=== PATIENT | female | born 1980 | race Caucasian/White ===

== ENCOUNTER 2016-09-20 11:16 | Inpatient (IN) | payer MEDICAID ==
[~2016-09-20] VITALS: Ht 154.9 cm; Wt 67.6 kg
--- NOTE | 2016-09-20 11:18 | NUR ---
PATIENT BIBA TO BED 5.
[2016-09-20] MEDS ORDERED: NACL 0.9% 1,000 ML IV SCH (11:21)
[2016-09-20 11:25] VITALS: BP 163/109
[2016-09-20] MEDS ORDERED: NACL 0.9% 1,000 ML IV ONE (11:25)
[2016-09-20] MEDS ORDERED: ONDANSETRON 4 MG/2 ML VIAL IVP ONE (11:25)
[2016-09-20] MEDS ORDERED: FAMOTIDINE 20 MG/2 ML VIAL IVP ONE (11:25)
--- NOTE | 2016-09-20 11:45 | NUR ---
PT STATES AFTER EATING AT [facility], WITH ABD CRAMPING SKIN IS PINK/WARM/DRY; AAOX4 WITH EVEN AND STEADY GAIT; LUNGS CLEAR BL; HR EVEN AND REGULAR; PT DENIES ANY FEVER, CP, SOB, OR COUGH AT THIS TIME; PATIENT STATES PAIN OF 10/10 AT THIS TIME; VSS; PATIENT POSITIONED FOR COMFORT; HOB ELEVATED; BEDRAILS UP X2; BED DOWN. ER MD MADE AWARE OF PT STATUS.
[2016-09-20 11:48] LABS: BASOPHILS # (AUTO) 0.1 K/uL (0.00-0.22); BASOPHILS % (AUTO) 1.9 % (0.0-2.0); EOSINOPHILS # (AUTO) 0.1 K/uL (0-0.4); EOSINOPHILS % (AUTO) 1.3 % (0.0-4.0); HEMOGLOBIN 14.3 g/dL (12.0-16.0); LYMPHOCYTES % (AUTO) 16.3 % (20.5-51.1); MEAN CORPUSCULAR HEMOGLOBIN 26 pg (27-31); MEAN CORPUSCULAR HGB CONC 33 g/dL (33-37); MEAN CORPUSCULAR VOLUME 81 fL (80-94); MONOCYTES # (AUTO) 0.3 K/uL (0.8-1.0); MONOCYTES % (AUTO) 4.7 % (1.7-9.3); NEUTROPHILS # (AUTO) 4.8 K/uL (1.8-7.7); NEUTROPHILS % (AUTO) 75.8 % (42.2-75.2); PLATELET COUNT (AUTO) 238 K/uL (140-450); RED BLOOD CELL COUNT(AUTO) 5.42 MIL/uL (4.20-5.40); RED CELL DISTRIBUTION WIDTH 15.6 % (11.6-13.7); WHITE BLOOD COUNT (AUTO) 6.3 K/uL (4.8-10.8)
[2016-09-20] MEDS ORDERED: ALBU0.0912 IH (11:56)
[2016-09-20 11:58] LABS: CALCIUM 9.2 mg/dL (8.5-10.1); CARBON DIOXIDE 26.1 mmol/L (21-32); CREATININE 0.9 mg/dL (0.6-1.3); POTASSIUM 3.1 mmol/L (3.5-5.1)
[2016-09-20 12:04] LABS: ALBUMIN 3.4 g/dL (3.4-5.0); TOTAL BILIRUBIN 0.3 mg/dL (0.0-1.0); TOTAL PROTEIN, SERUM 7.2 g/dL (6.4-8.2)
[2016-09-20 12:50] LABS: BILIRUBIN,URINE NEGATIVE (NEGATIVE); BLOOD, URINE 1+ (NEGATIVE); COLOR,URINE YELLOW (YELLOW); LEUKOCYTE ESTERASE ,URINE NEGATIVE (NEGATIVE); NITRITE, URINE NEGATIVE (NEGATIVE); PROTEIN,URINE NEGATIVE (NEGATIVE); UGLUCOSE NEGATIVE (NEGATIVE); UROBILINOGEN,URINE 0.2 EU/dL (0.2 - 1)
[2016-09-20 12:57] LABS: AMPHETAMINE, URINE POS. ng/ml (NEG <=1000); BARBITURATE, URINE NEG. ng/ml (NEG <=200); BENZODIAZEPINE, URINE NEG. ng/mL (NEG <=200); CANNABINOID, URINE NEG. ng/mL (NEG <=50); COCAINE, URINE NEG. ng/mL (NEG <=300); OPIATE, URINE NEG. ng/mL (NEG <=2000); PHENCYCLIDINE SCREEN,URINE NEG. ng/mL (NEG <=25)
--- NOTE | 2016-09-20 13:00 | NUR ---
PT RESTING IN BED, NO S/S OF RESPIRATORY DISTRESS NOTED.
[2016-09-20 13:35] LABS: APPEARANCE,URINE SLIGHTLY HAZY (CLEAR)
[2016-09-20 13:39] LABS: RBC,URINE 3-10 (FEW) /HPF (0-5); WBC,URINE 0-5 (RARE) /HPF (0-5)
[2016-09-20 13:40] LABS: BACTERIA,URINE 2+ /HPF (None Seen); MUCUS,URINE 1+ /LPF (None Seen); SQUAMOUS EPITHELIAL CELL,UR 4-10 (MOD) /LPF (0-3 (FEW))
[2016-09-20] MEDS ORDERED: ONDANSETRON 4 MG/2 ML VIAL IVP PRN (14:30)
[2016-09-20] MEDS ORDERED: LORazepam 2 MG/ML VIAL IVP PRN (14:30)
[2016-09-20] MEDS ORDERED: ALBUTEROL HFA MDI 90 MCG/ACTUATION 8 GM INH PRN (14:30)
--- NOTE | 2016-09-20 14:55 | NUR ---
NO BED AVAILABLE AT THIS TIME, WAITING FOR ROOM. CHARGE NURSE AWARE.
[2016-09-20] MEDS: DEXT 5% /NACL 0.9% 1,000 ML IV SCH (15:00)
[2016-09-20] MEDS ORDERED: PROBIOTIC SCREEN 1 EA MISC MC PRN (16:15)
[2016-09-20] MEDS ORDERED: cloNIDine 0.1 MG TAB PO PRN (16:15)
[2016-09-20] MEDS: ACETAMINOPHEN 325 MG TAB PO PRN (16:54)
--- NOTE | 2016-09-20 16:54 | NUR ---
PT COMPLAINS PAIN AT THIS TIME. TYLENOL GIVE ORDERED.
--- NOTE | 2016-09-20 17:00 | NUR ---
PT AWAKE, ALERT, AND ORIENTED , NO S/S OF RESPIRATORY DISTRESS NOTED. ON ROOM AIR. REPORT GIVEN, PT WILL BE TRANSFERRED TO [facility] [address].
[2016-09-20 17:20] VITALS: BP 107/68
--- NOTE | 2016-09-20 17:30 | NUR ---
ADMITTED A 36 Y/O FEMALE FROM ED, AAOX4 ACCOMPANIED BY 2 STAFF. PT ADMITTED TO [facility] FOR KIDNEY STONES AND HYDRONEPHROSIS. PT STATES SHE HAD N/V/D TODAY WITH ABDOMINAL PAIN. PT DENIES ANY PAIN AT THIS TIME. IV ACCESS TO LRT HAND 22G, INFUSING D5NS @ 100ML/HR. SKIN INTACT. DISCUSSED PLAN OF CARE. PT VERBALIZED UNDERSTANDING BUT REQUIRES REINFORCEMENT. PT QUICK TO ANGER AND HAS LABILE MOOD. PT DENIES TAKING METH. HOWEVER, UDS SHOWS + FOR METH. BELONGINGS CHECKED. NO VALUABLES. METERED DOSE INHALER KEPT IN THE BIN FOR PHARMACY. ALL NEEDS MET AND ANTICIPATED. ORIENTED TO CALL LIGHT, TV, PHONE, BATHROOM AND VISITING HRS. WILL CONTINUE TO MONITOR. CALL LIGHT PLACED WITHIN EASY REACH.
--- NOTE | 2016-09-20 18:00 | NUR ---
SPOKE WITH DR. BIRCH RE: K LEVEL 3.1L. GAVE ORDER TO GIVE KDUR 40MEQ POX1 NOW. WILL CARRY OUT ORDER.
[2016-09-20] MEDS ORDERED: POTASSIUM CHLORIDE 10 MEQ TABER PO SCH (18:25)
--- NOTE | 2016-09-20 18:33 | NUR ---
PT SLEEPING AT THIS TIME WITH REGULAR AND UNLABORED BREATHING. WILL CONTINUE TO MONITOR.
--- NOTE | 2016-09-20 19:29 | NUR ---
PT STILL SLEEPING AT THIS TIME. NO S/S OF RESPIRATORY DISTRESS. ENDORSED TO NEXT SHIFT FOR CONTINUITY OF CARE. PT IN STABLE CONDITION.
--- NOTE | 2016-09-20 19:30 | NUR ---
PATIENT IS CURRENTLY SLEEPING IN BED EASILY AROUSABLE ,IVF INFUSING WELL IV SITE PATENT.NO PAIN OR DISCOMFORT NOTED WILL CONTINUE TO MONITOR.CALL LIGHT WITHIN REACH.
[2016-09-20 20:00] VITALS: BP 148/71
[2016-09-20] MEDS: MORPHINE SULFATE 2 MG/ML SYR IVP PRN (20:48)
[2016-09-20] MEDS: ALBUTEROL 0.083% 2.5 MG/3 ML NEBU INH PRN (21:11)
--- NOTE | 2016-09-20 21:33 | NUR ---
PATIENT WAS ASKING FOR A SANDWICH AND A SODA AND IT WAS GIVEN TO THE PATIENT AND SHE ATE THE SANDWICH AND TOLERATED IT WELL.NEEDS MET WILL CONTINUE TO MONITOR.CALL LIGHT WITHIN REACH.
--- NOTE | 2016-09-20 22:00 | NUR ---
PATIENT ASKING FOR ANOTHER SANDWICH IT WAS GIVEN TO THE PATIENT.PATIENT REMAINS CALM AND COOPERATIVE.
[2016-09-20] MEDS: IBUPROFEN 600 MG TAB PO PRN (23:08)
[2016-09-21] VITALS: BP 145/89
--- NOTE | 2016-09-21 00:06 | NUR ---
PATIENT IS CURRENTLY RESTING IN BED SLEEPING ON AND OFF,IVF CONTINUES TO INFUSE WELL,IV SITE PATENT.CALL LIGHT WITHIN REACH.
[2016-09-21] MEDS: DEXT 5% /NACL 0.9% 1,000 ML IV SCH ×3 (00:30→18:14)
--- NOTE | 2016-09-21 02:23 | NUR ---
PATIENT SLEEPING COMFORTABLY IN BED IVF INFUSING WELL IV SITE PATENT WILL CONTINUE TO MONITOR.CALL LIGHT WITHIN REACH.
--- NOTE | 2016-09-21 02:39 | NUR ---
PATIENT COMPLAINS OF GENERALIZED SEVERE PAIN 11/24 AND RN DAYA WAS INFORMED HE WILL MEDICATE THE PATIENT FOR PAIN INDICATED.WILL CONTINUE TO MONITOR.PATIENT REQUESTED FOR JELLO AND IT WAS GIVEN TO THE PATIENT.CALL LIGHT WITHIN REACH.
[2016-09-21] MEDS: MORPHINE SULFATE 2 MG/ML SYR IVP PRN ×5 (02:48→23:01)
--- NOTE | 2016-09-21 04:10 | NUR ---
PATIENT STABLE SLEEPING IV INFUSING WELL.CALL LIGHT WITHIN REACH.
--- NOTE | 2016-09-21 06:21 | NUR ---
PATIENT STABLE RESTING IN BED.CALL LIGHT WITHIN REACH.
[2016-09-21 06:27] LABS: HEMATOCRIT 37.3 % (36-48); HEMOGLOBIN 12.3 g/dL (12.0-16.0); MEAN CORPUSCULAR HEMOGLOBIN 27 pg (27-31); MEAN CORPUSCULAR HGB CONC 33 g/dL (33-37); MEAN CORPUSCULAR VOLUME 82 fL (80-94); PLATELET COUNT (AUTO) 174 K/uL (140-450); RED BLOOD CELL COUNT(AUTO) 4.54 MIL/uL (4.20-5.40); RED CELL DISTRIBUTION WIDTH 15.9 % (11.6-13.7); WHITE BLOOD COUNT (AUTO) 5.1 K/uL (4.8-10.8)
[2016-09-21 06:43] LABS: ANION GAP 10.1 (8-16); CALCIUM 8.5 mg/dL (8.5-10.1); CARBON DIOXIDE 24.6 mmol/L (21-32); CREATININE 0.7 mg/dL (0.6-1.3); POTASSIUM 3.7 mmol/L (3.5-5.1)
--- NOTE | 2016-09-21 07:15 | NUR ---
PATIENT STABLE REPORT ENDORSED TO DARNELL NIXON AT BEDSIDE.
--- NOTE | 2016-09-21 07:15 | NUR ---
ASSUMED CONTINUITY OF CARE. NO SIGNS AND SYMPTOMS OF ACUTE DISTRESS NOTED. INITIAL ASSESSMENT DONE. EXPLAINED DIAGNOSIS, PLAN OF CARE, PAIN MANAGEMENT TEACHING, STRAIN URINE, USE OF CALL LIGHT/BED/TV/BATHROOM. VERBALIZED UNDERSTANDING. CALL LIGHT WITHIN REACH.
[2016-09-21 07:35] LABS: BAND % (MANUAL) 9 % (0-8); EOSINOPHILS % (MANUAL) 6 % (0-4); LYMPHOCYTES % (MANUAL) 37 % (20-46); MONOCYTES % (MANUAL) 6 % (5-12); NEUTROPHILS % (MANUAL) 42 (43-65)
[2016-09-21 08:00] VITALS: BP 138/94
--- NOTE | 2016-09-21 08:00 | NUR ---
Patient's Plan of Care was discussed and reviewed with [employer] TEAM LEAD: BIPIN NIXON
[2016-09-21] MEDS: TAMSULOSIN 0.4 MG CAP PO SCH (08:55)
--- NOTE | 2016-09-21 09:32 | NUR ---
PATIENT HAS BEEN SCREENED AND CATEGORIZED MODERATE NUTRITION RISK. PATIENT WILL BE SEEN WITHIN 3-5 DAYS OF ADMISSION. 09/23/16-09/25/[address]
--- NOTE | 2016-09-21 10:40 | NUR ---
WENT TO BATHROOM WITHOUT ASSISTANCE. TOLERATED WELL. NON-COMPLIANT WITH STRAIN URINE COLLECTION.
[2016-09-21 12:00] VITALS: BP 148/94
--- NOTE | 2016-09-21 12:07 | NUR ---
CM NOTE SPOKE WITH [facility] [phone] WHO SAID REVIEWS SHOULD ONLY BE SENT TO [facility]. FAXED INITIAL REVIEW TO [facility] [phone] PH [phone]
--- NOTE | 2016-09-21 17:09 | NUR ---
STILL NON-COMPLIANT WITH STRAIN COLLECTION. ALWAYS EXPLAINED AND REMINDED PT. ABOUT STRAIN URINE FOR CALCULUS MONITORING. WILL MONITOR.
--- NOTE | 2016-09-21 19:25 | NUR ---
BEDSIDE REPORT GIVEN TO TARYN CASTELLANOS. IVF INFUSING WELL. IN STABLE CONDITION.
[2016-09-21 20:00] VITALS: BP 142/79
--- NOTE | 2016-09-21 20:00 | NUR ---
RECEIVED AWAKE, ALERT,ORIENTED. AFEBRILE, NOT IN ACUTE DISTRESS. VERBALIZED PAIN ON THE RLQ OF THE ABDOMEN. MORPHINE NOT DUE AT THIS TIME. WITH AV FLUID D5NS INFUSING AT 100 ML/HR VIA RIGHT HABD #22 IV LINE. SAO2=99% ON ROOM AIR. VS STABLE, WILL CONTINUE TO MONITOR. NEEDS ATTENDED.
[2016-09-21] MEDS: IBUPROFEN 600 MG TAB PO PRN (21:38)
[2016-09-21] MEDS: ACETAMINOPHEN 325 MG TAB PO PRN (21:43)
--- NOTE | 2016-09-21 21:43 | NUR ---
TYLENOL 650 MG PO GIVEN FOR PAIN.
--- NOTE | 2016-09-21 23:01 | NUR ---
COMPLAINED OF NON-RELIEF OF PAIN. MORPHINE 2 MG IVP GIVEN.
[2016-09-22] VITALS: BP 151/84
--- NOTE | 2016-09-22 | NUR ---
ASLEEP,NOT IN ANY KIND OF DISTRESS. NO PAIN OR DISCOMFORT NOTED AT THIS TIME. SIDE RAILS UP, CALL LIGHT WITHIN REACH. KEPT WARM AND COMFORTABLE VS STABLE, WILL CONTINUE TO MONITOR.
--- NOTE | 2016-09-22 04:00 | NUR ---
ASLEEP, NOT IN ANY KIND OF DISTRESS. NO SIGNIFICANT CHANGE IN CONDITION. WILL CONTINUE TO MONITOR.
[2016-09-22] MEDS: MORPHINE SULFATE 2 MG/ML SYR IVP PRN ×3 (05:09→12:42)
--- NOTE | 2016-09-22 05:09 | NUR ---
COMPLAINED OF ABDOMINAL PAIN. MORPHINE 2 MG IVP GIVEN ORDERED.
[2016-09-22] MEDS: DEXT 5% /NACL 0.9% 1,000 ML IV SCH (05:17)
--- NOTE | 2016-09-22 05:40 | NUR ---
ASLEEP, NO PAIN OR DISCOMFORT NOTED AT THIS TIME.
[2016-09-22] MEDS: ACETAMINOPHEN 325 MG TAB PO PRN (06:57)
--- NOTE | 2016-09-22 06:57 | NUR ---
COMPLAINED OF NON-RELIEF OF PAIN. MORPHINE NOT DUE. TYLENOL 650 MG PO GIVEN PER PT'S REQUEST.
--- NOTE | 2016-09-22 07:15 | NUR ---
ENDORSED CARE TO FRANKIE HAMEED.
--- NOTE | 2016-09-22 07:16 | NUR ---
RECEIVED PT FROM SUPERVISOR PUMPING STATION NURSE AT BEDSIDE. PT IS A&OX4. PT HAS IV ON R HAND 22 G RUNNING D5NS@100. PT C/O PAIN WILL MEDICATE WHEN PAIN MED IS DUE. PT STATED SHE HAS BEEN STRAINING URINE BUT NO STONES. CALL LIGHT WITHIN REACH. WILL CONTINUE TO MONITOR.
[2016-09-22 07:23] LABS: HEMATOCRIT 37.5 % (36-48); HEMOGLOBIN 12.3 g/dL (12.0-16.0); MEAN CORPUSCULAR HEMOGLOBIN 27 pg (27-31); MEAN CORPUSCULAR HGB CONC 33 g/dL (33-37); MEAN CORPUSCULAR VOLUME 82 fL (80-94); PLATELET COUNT (AUTO) 179 K/uL (140-450); RED BLOOD CELL COUNT(AUTO) 4.58 MIL/uL (4.20-5.40); RED CELL DISTRIBUTION WIDTH 15.6 % (11.6-13.7)
[2016-09-22 07:48] LABS: ANION GAP 11.9 (8-16); CALCIUM 8.5 mg/dL (8.5-10.1); CARBON DIOXIDE 24.7 mmol/L (21-32); CREATININE 0.7 mg/dL (0.6-1.3); POTASSIUM 3.6 mmol/L (3.5-5.1)
[2016-09-22 08:00] VITALS: BP 136/100
[2016-09-22 08:07] LABS: EOSINOPHILS % (MANUAL) 6 % (0-4); LYMPHOCYTES % (MANUAL) 53 % (20-46); MONOCYTES % (MANUAL) 5 % (5-12); NEUTROPHILS % (MANUAL) 36 (43-65)
--- NOTE | 2016-09-22 08:55 | NUR ---
ENDORSED CARE OF PT TO DARNELL CALLEJAS AT BEDSIDE. PT IN STABLE CONDITION. WILL PROVIDE IV PAIN MED FOR PT.
[2016-09-22] MEDS: TAMSULOSIN 0.4 MG CAP PO SCH (09:04)
--- NOTE | 2016-09-22 11:17 | NUR ---
CM NOTE FAXED CONCURRENT REVIEW TO [facility] [phone]
--- NOTE | 2016-09-22 12:42 | NUR ---
NOTIFIED BY BRITTA PATRICK THAT PT IS SCREAMING IN PAIN. MEDICATED PT.
[2016-09-22] MEDS: ALBUTEROL 0.083% 2.5 MG/3 ML NEBU INH PRN (12:58)
[2016-09-22] MEDS: IBUPROFEN 600 MG TAB PO PRN (12:58)
[2016-09-22 13:00] VITALS: BP 148/91
[2016-09-22] MEDS ORDERED: CHLORHEXADINE GLUC 2% CLOTH TP SCH (13:00)
[2016-09-22] MEDS ORDERED: MUPIROCIN 2% OINT 22 GM TUBE TP SCH (13:00)
--- NOTE | 2016-09-22 14:50 | NUR ---
PT IS IN ISOLATION ROOM. PT INFORMED APPAREL CUTTER THAT SHE DOES NOT WANT TO BE HERE ANYMORE SHE WANT TO LEAVE. INFORMED PT THAT IT IS MEDICALLY NECESSARY FOR HER TO BE HER. PT SAID THAT SHE DID NOT CARE SHE JUST WANTS TO GO. ADVISED PT THAT IT IS AGAINST MEDICAL ADVICE FOR HER TO LEAVE. PT SAID IM LEAVING GAVE PT AMA PAPERS, PAGE MD
--- NOTE | 2016-09-22 14:55 | NUR ---
CALLED AWARE THAT PATIENT LEFT AMA
== END 2016-09-22 14:55 | disposition left against medical advice (07) | DRG 249 ==
LOC: MED 11:16 → MIC 14:39 → MTU 16:42
PROVIDERS: ADMIT Preventive Medicine Preventive Medicine/Occupational Environmental Medicine; ATTEND Preventive Medicine Preventive Medicine/Occupational Environmental Medicine
DX: K52.9 Noninfective gastroenteritis and colitis, unspecified (principal); N13.2 Hydronephrosis with renal and ureteral calculous obstruction; I10 Essential (primary) hypertension; F15.10 Other stimulant abuse, uncomplicated; R73.9 Hyperglycemia, unspecified; E87.6 Hypokalemia; Z53.21 Procedure and treatment not carried out due to patient leaving prior to being seen by health care provider; J45.909 Unspecified asthma, uncomplicated; Z87.442 Personal history of urinary calculi; Z88.6 Allergy status to analgesic agent; Z88.1 Allergy status to other antibiotic agents; Z88.8 Allergy status to other drugs, medicaments and biological substances; Z59.0 Homelessness
CPT/HCPCS: 36415; 74000; 80048; 80053; 80305; 81001; 82150; 83690; 84703; 85025; 87040; 87081; 87086; 94640; 96361; 96374; 96375; 99285; J2270; J2405; J3490; J7042; J7613

== ENCOUNTER 2018-08-28 05:54 | Emergency (ER) | payer MEDICAID ==
[~2018-08-28] VITALS: Ht 157.5 cm; Wt 68.0 kg
[~2018-08-28 05:54] MED LIST: ALBU0.0912 IH
[2018-08-28 05:55] VITALS: BP 177/134
--- NOTE | 2018-08-28 05:55 | NUR ---
PT BIBA BLS. TAKEN TO BED 9
[2018-08-28] MEDS ORDERED: ONDANSETRON 4 MG/2 ML VIAL IVP ONE (06:05)
[2018-08-28] MEDS ORDERED: NACL 0.9% 1,000 ML IV ONE (06:05)
--- NOTE | 2018-08-28 06:20 | NUR ---
38 YO F FERNIE FROM [facility] FOR NVD, WEBB, ABD PAIN X 3 DAYS. PT REPORTS EMESIS X 3 AND DIARRHEA X 2 IN PAST 24 HOURS. PT REPORTS 7/10 HEADACHE AND UPPER MIDDLE ABD PAIN. PT HAS HX OF HTN AND DOES NOT KNOW WHAT MEDICATION SHE TAKES. PT IS HYPERTENSIVE AT THIS TIME: 165/111. PT IS HOMELESS. POOR HYGIENE NOTED. PT IS SLEEPY DURING ASSESSMENT. AROUSABLE TO NAME. A/O X 4. POOR HISTORIAN. SPEECH IS MUMBLING. PT DENIES ALCOHOL AND DRUG USE.
[2018-08-28 07:07] LABS: BASOPHILS % (AUTO) 0.4 % (0.0-2.0); EOSINOPHILS # (AUTO) 0.1 K/uL (0-0.4); EOSINOPHILS % (AUTO) 1.1 % (0.0-4.0); HEMATOCRIT 38.3 % (36-48); HEMOGLOBIN 12.7 g/dL (12.0-16.0); LYMPHOCYTES # (AUTO) 1.3 K/uL (2.5-16.5); LYMPHOCYTES % (AUTO) 14.9 % (20.5-51.1); MEAN CORPUSCULAR HEMOGLOBIN 28 pg (27-31); MEAN CORPUSCULAR HGB CONC 33 g/dL (33-37); MEAN CORPUSCULAR VOLUME 84.6 fL (80-94); MONOCYTES # (AUTO) 0.5 K/uL (0.8-1.0); MONOCYTES % (AUTO) 6.1 % (1.7-9.3); NEUTROPHILS % (AUTO) 77.5 % (42.2-75.2); PLATELET COUNT (AUTO) 237 K/uL (140-450); RED BLOOD CELL COUNT(AUTO) 4.53 MIL/uL (4.20-5.40); RED CELL DISTRIBUTION WIDTH 13.7 % (11.6-13.7)
--- NOTE | 2018-08-28 07:07 | NUR ---
Dr. Heard examining patient.
[2018-08-28] MEDS ORDERED: KETOROLAC 30 MG/ML VIAL IVP ONE (07:15)
[2018-08-28] MEDS ORDERED: ENALAPRILAT 2.5 MG/2 ML VIAL IVP ONE (07:15)
--- NOTE | 2018-08-28 07:16 | NUR ---
REPORT GIVEN TO ZARI MIKE. TRANSFER OF CARE AT THIS TIME.
--- NOTE | 2018-08-28 07:25 | NUR ---
PT BP 188/117. GIVEN VASOTEC IVP. PAIN 10/10 GIVEN TORADOL IVP. PT AA0X4. LAYING IN BED.
--- NOTE | 2018-08-28 07:26 | NUR ---
UNABLE TO GIVE URINE AT THIS TIME
[2018-08-28 07:36] LABS: ALBUMIN 3.3 g/dL (3.4-5.0); ANION GAP 12.6 (8-16); CARBON DIOXIDE 24.5 mmol/L (21-32); CREATININE 0.9 mg/dL (0.6-1.3); POTASSIUM 3.1 mmol/L (3.5-5.1); TOTAL BILIRUBIN 0.5 mg/dL (0.0-1.0)
--- NOTE | 2018-08-28 08:00 | NUR ---
BP 166/103
--- NOTE | 2018-08-28 08:10 | NUR ---
PT MAB TO RESTROOM WITH STEADY GAIT
--- NOTE | 2018-08-28 08:42 | NUR ---
DR MADDEN AT PTS BEDSIDE
[2018-08-28] MEDS ORDERED: MORPHINE SULFATE 4 MG/ML SYR IVP ONE (08:45)
[2018-08-28 09:32] VITALS: BP 133/79
--- NOTE | 2018-08-28 09:32 | NUR ---
Patient discharged with v/s stable. Written and verbal after care instructions given and explained. Patient alert, oriented and verbalized understanding of instructions. Ambulatory with steady gait. All questions addressed prior to discharge. ID band removed. Patient advised to follow up with PMD. Rx of CIPRO, MOTRIN, BENAZEPRIL HYDROCHLORIDE given. Patient educated on indication of medication including possible reaction and side effects. Opportunity to ask questions provided and answered. PT GIVEN HOMELESS PACKET, FOOD, HYGEINE PACKET, AND PT HAS SIGNED HOMELESS WAIVER.
== END 2018-08-28 09:32 | disposition home or self-care (01) ==
LOC: MED 05:54
DX: N39.0 Urinary tract infection, site not specified (principal); R11.2 Nausea with vomiting, unspecified; R19.7 Diarrhea, unspecified; R07.9 Chest pain, unspecified; J45.909 Unspecified asthma, uncomplicated; I10 Essential (primary) hypertension; Z88.1 Allergy status to other antibiotic agents; Z88.5 Allergy status to narcotic agent; Z88.2 Allergy status to sulfonamides
CPT/HCPCS: 36415; 80053; 81002; 81025; 83690; 85025; 96361; 96374; 96375; 99283; J1885; J2270; J2405; J3490; J7030